=== PATIENT | male | born 1990 | race Caucasian/White ===

== ENCOUNTER 2017-10-04 18:03 | Emergency (ER) | payer BC ==
[~2017-10-04] VITALS: Ht 177.8 cm; Wt 104.3 kg
[2017-10-04] MEDS ORDERED: PREDNISONE 20 M20 MG PO (19:35)
[2017-10-04 19:41] VITALS: BP 118/76
== END 2017-10-04 19:40 | disposition home or self-care (01) ==
LOC: ER 18:03
DX: T78.49XA Other allergy, initial encounter (principal); X58.XXXA Exposure to other specified factors, initial encounter; Z90.89 Acquired absence of other organs; Z88.1 Allergy status to other antibiotic agents; Z88.0 Allergy status to penicillin; Z88.2 Allergy status to sulfonamides

== ENCOUNTER 2018-04-15 11:54 | Emergency (ER) | payer BC ==
[~2018-04-15] VITALS: Ht 177.8 cm; Wt 115.7 kg
[~2018-04-15 11:54] MED LIST: PREDNISONE 20 M20 MG PO
[2018-04-15] MEDS ORDERED: PRILOSEC OTC20 MG PO (12:04)
[2018-04-15] MEDS ORDERED: PREDNISONE 20 M20 MG PO (13:17)
[2018-04-15 13:52] VITALS: BP 125/76
== END 2018-04-15 13:56 | disposition home or self-care (01) ==
LOC: ER 11:54
DX: T78.40XA Allergy, unspecified, initial encounter (principal); K13.79 Other lesions of oral mucosa; Z88.1 Allergy status to other antibiotic agents; Z88.6 Allergy status to analgesic agent; Z88.0 Allergy status to penicillin; Z88.2 Allergy status to sulfonamides; Z88.8 Allergy status to other drugs, medicaments and biological substances